=== PATIENT | female | born 1950 | race Caucasian/White ===

== ENCOUNTER → 2020-02-15 | Outpatient (CLI) | payer MEDICARE, BC, OTHER ==
[~2020-02-15] MED LIST: ACET-683 PO; CITA40TA6 PO; DOCU-129 PO; ELIQ5TAB PO; LASI20TA3 PO; PACE0.05 PO; PANT40TA29 PO; RA M1SUB SL; TOPR50TA PO; ZETI10TA16 PO
== END ==
LOC: M LABSMTC 09:48
PROVIDERS: ATTEND Anesthesiology
DX: Z01.818 Encounter for other preprocedural examination (principal); Z11.59 Encounter for screening for other viral diseases
CPT/HCPCS: C9803; U0003

== ENCOUNTER 2020-02-18 06:30 | Day surgery (SDC) | payer MEDICARE, BC, OTHER ==
[~2020-02-18] VITALS: Ht 177.8 cm; Wt 131.7 kg
[~2020-02-18 06:30] MED LIST changes: +LIDOCAINE 1% MDV 20ML VIAL SQ PRN; -PANT40TA29 PO; +PANT40TA3 PO; -RA M1SUB SL
[2020-02-18] MEDS ORDERED: RA M1SUB SL (06:57)
[2020-02-18] MEDS ORDERED: LIDOCAINE 2% 100MG/5ML SDV (FOR ANES.) As Ordered ONE (07:15)
[2020-02-18] MEDS ORDERED: propofoL 200 MG/20 ML VIAL As Ordered ONE (07:15)
[2020-02-18] MEDS ORDERED: LR 1,000 ML IV SCH (08:15)
[2020-02-18] MEDS ORDERED: LR 1,000 ML IV ONE (08:15)
[2020-02-18] MEDS ORDERED: fentaNYL 100 MCG/2 ML INJECTION (J3010) IV PRN (08:15)
[2020-02-18] MEDS ORDERED: ONDANSETRON 4MG/2ML VIAL IV PRN (08:15)
--- NOTE | 2020-02-18 08:48 | ECGEPIP ---
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 No prior tracing for comparison. Clincal correlation advised Electronically Signed on 02-18-2020 8:48:27 EDT by Erick Macdonald
--- NOTE | 2020-02-18 08:52 | ECGEPIP ---
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 First-degree AV block Somewhat low voltages with slow precordial R wave progression; body habitus v versus pulmonary disease Nonspecific ST/T wave abnormalities with QT prolongation (amiodarone effect v versus electrolyte disturbance?) Rhythm has converted from atrial flutter earlier the same day Electronically Signed on 02-18-2020 8:52:34 EDT by Erick Macdonald
[2020-02-18 09:10] VITALS: BP 131/82
--- NOTE | 2020-02-18 10:12 | RO ---
DATE OF PROCEDURE: 02/18/2020 DIAGNOSIS: Atrial flutter. PROCEDURE: Cardioversion SURGEON: Andrew Bailey MD ANESTHESIOLOGY: Amilcar Rebolledo CRNA BRIEF HISTORY: Mrs. Gonzales is a 69-year-old female who has had persistent atrial fibrillation for at least 6 months. Because she did not tolerated the arrhythmia very well and felt tired all the time, we decided to attempt to restore sinus mechanism. I discussed the nature of the procedure with the patient on an outpatient basis. She was loaded with amiodarone orally and after approximately 2 months of the medication did not restore sinus mechanism. Consequently, we decided to proceed with DC cardioversion. PROCEDURE NOTE: Procedure was performed in recovery room. The patient presented in a fasting state. After she was examined and I went over the consent again with her, anesthesiologist administered sedation after appropriate monitors were applied, and time-out was taken. She was cardioverted with 200 joules of energy deployed in synchronized fashion. There were no immediate complications, and the patient tolerated the procedure well. There was no postconversion pause. She will be discharged home after brief monitoring. Followup will be arranged in our office next week. DAVID
== END 2020-02-18 09:13 | disposition home or self-care (01) ==
LOC: M SDC 06:30
PROVIDERS: ATTEND Internal Medicine Cardiovascular Disease
DX: I48.19 Other persistent atrial fibrillation (principal); I48.92 Unspecified atrial flutter; I10 Essential (primary) hypertension; K21.9 Gastro-esophageal reflux disease without esophagitis; G47.30 Sleep apnea, unspecified; F32.9 Major depressive disorder, single episode, unspecified; Z88.8 Allergy status to other drugs, medicaments and biological substances; Z98.84 Bariatric surgery status; Z79.899 Other long term (current) drug therapy

== ENCOUNTER → 2021-07-27 | Outpatient (CLI) | payer MEDICARE, BC, OTHER ==
[~2021-07-27] MED LIST changes: +ADV250INH INH; -DOCU-129 PO; +DOCU-153 PO; -LIDOCAINE 1% MDV 20ML VIAL SQ PRN; +PANT40TA29 PO; -PANT40TA3 PO; +RA M1SUB PO; +cbd PO
== END ==
LOC: M LABSMTC 10:08
PROVIDERS: ATTEND Anesthesiology
DX: Z01.818 Encounter for other preprocedural examination (principal); Z11.52 Encounter for screening for COVID-19

== ENCOUNTER 2021-07-31 06:25 | Day surgery (SDC) | payer MEDICARE, BC, OTHER ==
[~2021-07-31] VITALS: Ht 177.8 cm; Wt 133.9 kg
[~2021-07-31 06:25] MED LIST changes: +LR 1,000 ML IV ONE
[2021-07-31] MEDS ORDERED: propofoL 200 MG/20 ML VIAL As Ordered ONE (07:14)
[2021-07-31] MEDS ORDERED: LIDOCAINE 2% 100MG/5ML SDV (FOR ANES.) As Ordered ONE (07:14)
[2021-07-31] MEDS ORDERED: LR 1,000 ML IV SCH (07:45)
--- NOTE | 2021-07-31 08:11 | RO ---
OPERATIVE NOTE DATE OF OPERATION: 07/31/2021 PREOPERATIVE DIAGNOSIS: Atrial fibrillation. POSTOPERATIVE DIAGNOSIS: Atrial fibrillation. PROCEDURE: Cardioversion. SURGEON: Andrew Bailey MD ANESTHESIOLOGY: Melania Wolfe CRNA MEMBERSHIP ADMINISTRATOR: ANESTHESIA: BRIEF HISTORY: Mrs. Gonzales is a 70-year-old female who has persistent atrial fibrillation for at least three months. She has prior history of atrial fibrillation that also was treated initially with cardioversion and after she relapsed then ablation earlier this year. Unfortunately with the relapse, she has not been feeling well in spite of good rate control. Consequently we decided to load her with amiodarone and then bring for elective cardioversion. The nature of the procedure and its potential implications were discussed with her on an outpatient basis. She did sign appropriate consent. PROCEDURE NOTE: The procedure was performed in the recovery room. The patient presented in a fasting condition. After all appropriate monitors were applied and timeout was taken, the patient was cardioverted using 200 joules of energy delivered in synchronized fashion. Single shot led to druze of sinus mechanism. There were no immediate complications and the patient tolerated the procedure well. She will be discharged home with continuation of current medication with the exception of discontinuation of metoprolol. Followup will be arranged in our office within the next two weeks.
[2021-07-31 08:20] VITALS: BP 135/70
--- NOTE | 2021-07-31 15:14 | ECGEPIP ---
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 Rhythm change from sinus 02/18/20. Clinical correlation advised Electronically Signed on 07-31-2021 15:14:18 EST by Erick Macdonald
--- NOTE | 2021-07-31 15:26 | ECGEPIP ---
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 First-degree AV block. Low voltages with slightly slow precordial R wave progression; body habitus v versus pulmonary disease. Could not rule out prior septal infarction. Corrected QT is prolonged possibly related to antiarrhythmic therapy. Rhythm converted from atrial fibrillation earlier the same day Electronically Signed on 07-31-2021 15:26:23 EST by Erick Macdonald
== END 2021-07-31 08:27 | disposition home or self-care (01) ==
LOC: M SDC 06:25
PROVIDERS: ATTEND Internal Medicine Cardiovascular Disease
DX: I48.91 Unspecified atrial fibrillation (principal); I10 Essential (primary) hypertension; E78.5 Hyperlipidemia, unspecified; K21.9 Gastro-esophageal reflux disease without esophagitis; Z88.8 Allergy status to other drugs, medicaments and biological substances; J45.909 Unspecified asthma, uncomplicated; F41.9 Anxiety disorder, unspecified; F32.9 Major depressive disorder, single episode, unspecified; Z79.899 Other long term (current) drug therapy

== ENCOUNTER → 2025-08-18 | Outpatient (REF) ==
[~2025-08-18] MED LIST changes: -ADV250INH INH; +ADVA1AER9 INH; -DOCU-153 PO; +EZET10TA58 PO; -LR 1,000 ML IV ONE; +STOO100C30 PO; -ZETI10TA16 PO
== END ==
LOC: M LAB REF 13:23
DX: N39.0 Urinary tract infection, site not specified (principal)